=== PATIENT | male | born 1970 | race Caucasian/White ===

== ENCOUNTER 2017-06-24 09:40 | Emergency (ER) | payer BC ==
--- NOTE | 2017-06-24 09:51 | PDOC ---
History of Present Illness - General Chief Complaint: Injury Stated Complaint: LEFT BIG TOE PAIN Time Seen by Provider: 06/24/17 09:43 History Source: Patient, Old Records Exam Limitations: Language Barrier - History of Present Illness Initial Comments: 06/24/17 09:48 46-year-old male with no significant past medical history presents the emergency Department with complaints of pain to the left great toe after dropping a heavy rock on his foot 2 days ago. The patient is able to ambulate with some pain. The patient has been putting ice to the area and has been taking [id number] pain relievers such as Tylenol and Motrin without significant relief. The patient did not seek medical attention before today. Past History - Past Medical History Allergies/Adverse Reactions: Allergies Allergy/AdvReac Type Severity Reaction Status Date / Time No Known Allergies Allergy Verified 06/24/17 09:44 Home Medications: Ambulatory Orders NK [No Known Home Medication] 06/24/17 - Psycho/Social/Smoking Cessation Hx Anxiety: No Suicidal Ideation: No Smoking History: Never smoked Information on smoking cessation initiated: No Hx Alcohol Use: (occasional) Review of Systems - Review of Systems Able to Perform ROS?: Yes Is the patient limited Kiswahili proficient: No Constitutional: No: Symptoms Reported HEENTM: No: Symptoms Reported Respiratory: No: Symptoms reported, Hemoptysis ABD/GI: No: Symptoms Reported Musculoskeletal: Yes: Symptoms Reported, See HPI Integumentary: No: Symptoms Reported *Physical Exam - Vital Signs Last Vital Signs Temp Pulse Resp BP Pulse Ox 97.9 F 98 H 18 140/87 100 06/24/17 09:40 06/24/17 09:40 06/24/17 09:40 06/24/17 09:40 06/24/17 09:40 - Physical Exam Comments: 06/24/17 09:49 GENERAL: Well developed, well nourished. Awake and alert. No acute distress. MUSCULOSKELETAL Normal range of motion at all joints. No bony deformities or tenderness. No CVA tenderness. EXTREMITIES: Left foot: the great toe has mild soft tissue swelling. There is tenderness to palpation of the middle of the digit. The nail and nail bed is intact and are uninjured. Distal pulses are intact. SKIN: Warm and dry. Normal capillary refill. No rashes. No jaundice. ED Treatment Course - RADIOLOGY Radiology Studies Ordered: Category Date Time Status FOOT-LEFT [RAD] Stat Radiology 06/24/17 09:47 Ordered Medical Decision Making - Medical Decision Making 06/24/17 09:50 46-year-old male with crush injury to the left great toe. Differential diagnosis includes but is not limited to: Fracture, contusion, sprain. Plan: 1. Pain, the foot 2. Pain management 3. Observe and reevaluate 06/24/17 10:23 Addendum: Plain film of the foot is negative for fx, dislocation. Will discharge home. Supportive care. Return to the ED if Sx persist, worsen or new Sx arise. *DC/Admit/Observation/Transfer Diagnosis at time of Disposition: Crushing injury of left great toe, initial encounter, Contusion of toe of left foot - Discharge Dispostion Disposition: HOME Condition at time of disposition: Stable Admit: No - Patient Instructions Additional Instructions: You may continue to take ibuprofen 600-800mg every 6-8 hours as needed for pain. Ice to the toe for swelling. Follow-up with your primary care physician and return to the ED if your symptoms persist, worsen or new symptoms arise.
[2017-06-24 10:11] VITALS: BP 140/87; PULSE 98; TEMP 97.9; BMI 36.6
== END 2017-06-24 10:49 | disposition home or self-care (01) ==
LOC: FER 09:40
DX: S90.112A Contusion of left great toe without damage to nail, initial encounter (principal); W23.0XXA Caught, crushed, jammed, or pinched between moving objects, initial encounter; Y93.89 Activity, other specified; Y92.9 Unspecified place or not applicable
CPT/HCPCS: 73630-TC-LT; 99282-25

== ENCOUNTER 2019-05-11 21:31 | Emergency (ER) | payer BC | END 2019-05-11 22:03 | disposition home or self-care (01) | LOC: FER 21:31 ==

== ENCOUNTER 2019-06-29 10:36 | Emergency (ER) | payer BC ==
[2019-06-29 11:00] VITALS: BP 149/90; PULSE 102; TEMP 98.2; BMI 36.6
--- NOTE | 2019-06-29 11:10 | PDOC ---
History of Present Illness - General Chief Complaint: Injury Stated Complaint: LEFT TOE INJURY Time Seen by Provider: 06/29/19 10:38 - History of Present Illness Initial Comments: 06/29/19 11:06 48 years old witha past medical history presents to the emergency department with injury to left pinky toe Patient dropped a small weight on his left pinky toe no other injury sustained complaining of moderate to severe throbbing pain worse with ambulation alleviated by rest Past History - Past Medical History Allergies/Adverse Reactions: Allergies Allergy/AdvReac Type Severity Reaction Status Date / Time No Known Allergies Allergy Verified 06/29/19 10:40 Home Medications: Ambulatory Orders Sitagliptin Phos/Metformin HCl [Janumet 50-1,000 mg Tablet] 1 each PO BID COPD: No Diabetes: Yes - Suicide/Smoking/Psychosocial Hx Smoking History: Never smoked Have you smoked in the past 12 months: No Hx Alcohol Use: No Drug/Substance Use Hx: No Review of Systems - Review of Systems Comments:: 06/29/19 11:06 ROS: A complete review of 10 out of 10 review of systems is taken and is negative apart from what is previously mentioned below and in the HPI. *Physical Exam - Vital Signs Last Vital Signs Temp Pulse Resp BP Pulse Ox 98.2 F 102 H 14 149/90 99 06/29/19 10:37 06/29/19 10:37 06/29/19 10:37 06/29/19 10:37 06/29/19 10:37 - Physical Exam Comments: 06/29/19 11:06 Vitals: Triage Vital signs reviewed General Appearance: no acute distress, well nourished well developed, Head: Atraumatic, Extremities: Full range of motion to all extremities, swelling and tenderness to left pinky toe, neurovascularly intact distally Skin: Warm and dry, no rashes or lesions, no rash, no petechiae Neuro: Strength intact to all extremities, Sensation intact to all extremities, gait normal Psych: normal mood, normal affect ED Treatment Course - RADIOLOGY Radiology Studies Ordered: Category Date Time Status TOE(S) LEFT [RAD] Stat Radiology 06/29/19 10:50 Ordered Medical Decision Making - Medical Decision Making 06/29/19 11:10 Crush injury to left pinky toe. X-ray performed no obvious fracture we'll sebastien tape hard sole shoe rest elevation Findings, the need for follow-up and strict return instructions discussed with patient. *DC/Admit/Observation/Transfer Diagnosis at time of Disposition: Crushing injury of left great toe, initial encounter Qualifiers: Encounter type: initial encounter Qualified Code(s): S97.112A - Crushing injury of left great toe, initial encounter - Discharge Dispostion Disposition: HOME Condition at time of disposition: Good Decision to Admit order: No - Referrals Referrals: Melchor Smith [Primary Care Provider] - Tate Young MD [Staff Physician] - - Patient Instructions Printed Discharge Instructions: Contusion Additional Instructions: Sebastien tape pinky toe to adjacent toe. Limited ambulation for the next 2 days. Wear a hard soled shoe when walking. Keep elevated. Ice 20 minutes on 20 minutes off. Alternate Tylenol Motrin as directed on package. If still having pain for greater than 1 week follow-up with Dr. Young orthopedics. - Post Discharge Activity
== END 2019-06-29 11:26 | disposition home or self-care (01) ==
LOC: FER 10:36
PROC: 2W3VXYZ Immobilization of Left Toe using Other Device (ICD-10-PCS; principal; 2019-06-29)
DX: S97.112A Crushing injury of left great toe, initial encounter (principal); W22.01XA Walked into wall, initial encounter; Y93.89 Activity, other specified; Y92.89 Other specified places as the place of occurrence of the external cause; E11.9 Type 2 diabetes mellitus without complications
CPT/HCPCS: 73660-TC-LT-FY; 99282-25